=== PATIENT | female | born 1995 | race Two or more races ===

== ENCOUNTER 2016-11-09 09:44 | Emergency (ER) | payer OTHER ==
[2016-11-09 09:58] VITALS: BMI 26.5
--- NOTE | 2016-11-09 09:58 | PDOC ---
Attending Attestation - Resident Resident Name: Coni Saldaña - ED Attending Attestation I have performed the following: I have examined & evaluated the patient, The case was reviewed & discussed with the resident, I agree w/resident's findings & plan, Exceptions are as noted - HPI HPI: 11/09/16 10:28 Toe Numbness Hx of Cerebral Aneurysm x2, one clipped, one not. - Physicial Exam PE: 11/09/16 10:29 VSS NAD - Medical Decision Making 11/09/16 10:[address] Stover's assessment and plan
[2016-11-09] MEDS ORDERED: SODIUM CHLORIDE 1,000 ML IV STA (10:27)
--- NOTE | 2016-11-09 10:39 | PDOC ---
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 Pt was sitting and noticed when she got up that her Left foot 1st toe was numb, no pain or tingling. She thought the numbness would go away, however she presents to the ER today with persistent numbness. The numbness is constant , but has not spread. Pt denies any activity out of the ordinary lately. Pt does report wearing her friend's shoes yesterday, sneakers that fit comfortably. Pt reports having more stress lately related to school, grandmother passed recently, and mother's wedding recently. Pt denies headache , seizure, LOC, fever/chills, chest pain, SOB. 11/09/16 10:38 Severity: mild Associated Symptoms: denies: chest pain, diaphoresis, fever/chills, headaches, seizure, syncope Aspirin Received prior to arrival: Yes: no aspirin today Past History - Past Medical History Allergies/Adverse Reactions: Allergies Allergy/AdvReac Type Severity Reaction Status Date / Time No Known Allergies Allergy Verified 11/09/16 09:53 Home Medications: Ambulatory Orders Cephalexin [Keflex] 500 mg PO BID #14 capsule 11/09/16 CVA: (2 cerebral aneurysms) Seizures: No - Surgical History Neurologic Surgery: Yes (Left internal carotid artery terminus aneurysm coiled at [facility] 1 yr ago) - Family Disease History Family Disease History: Other: Brother (epilepsy) - Immunization History Immunization Up to Date: Yes - Psycho/Social/Smoking Cessation Hx Anxiety: No Suicidal Ideation: No Smoking History: Never smoked Have you smoked in the past 12 months: No Information on smoking cessation initiated: No Hx Alcohol Use: No Drug/Substance Use Hx: No Substance Use Type: None Review of Systems - Review of Systems Able to Perform ROS?: Yes Is the patient limited Kinyarwanda proficient: No Constitutional: No: Chills, Diaphoresis, Fever HEENTM: No: Recent change in vision, Ear Pain, Nose Pain, Throat Pain Respiratory: No: Shortness of Breath, Stridor, Wheezing, Hemoptysis Cardiac (ROS): No: Chest Pain, Irregular Heart Rate, Palpitations, Syncope ABD/GI: No: Constipated, Diarrhea, Nausea, Rectal Bleeding, Vomiting, Abdominal cramping : No: Dysuria, Hematuria Musculoskeletal: No: Joint Pain, Muscle Pain Integumentary: No: Bruising, Rash Neurological: Yes: Numbness (Left foot 1st toe). No: Headache, Seizure, Tingling, Unsteady Gait, Dizziness Hematologic/Lymphatic: No: Easy Bruising, Bleeding Diathesis *Physical Exam - Vital Signs Last Vital Signs Temp Pulse Resp BP Pulse Ox 98.4 F 65 18 137/59 98 11/09/16 09:51 11/09/16 09:51 11/09/16 09:51 11/09/16 09:51 11/09/16 09:51 - Physical Exam General Appearance: Yes: Nourished, Appropriately Dressed. No: Apparent Distress HEENT: positive: EOMI, WILLIE, Normal Voice, Other (moist mucous membranes). negative: Pale Conjunctivae, Scleral Icterus (R), Scleral Icterus (L) Neck: positive: Trachea midline, Supple Respiratory/Chest: positive: Lungs Clear, Normal Breath Sounds. negative: Respiratory Distress, Accessory Muscle Use, Rhonchi, Stridor, Wheezing Cardiovascular: positive: Regular Rhythm, Regular Rate, S1, S2. negative: Edema , JVD, Murmur Vascular Pulses: Dorsalis-Pedis (R): 3+, Doralis-Pedis (L): 3+ Gastrointestinal/Abdominal: negative: Tender, Distended, Guarding, Rebound Musculoskeletal: positive: Normal Inspection Extremity: positive: Normal Range of Motion. negative: Pedal Edema, Calf Tenderness Integumentary: positive: Dry, Warm Neurologic: positive: Fully Oriented, Alert, Normal Mood/Affect, Numbness ( numbness to Left foot 1st toe. 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 Call placed to Neurologist (Dr. Adams at [facility]). Office faxed over most recent imaging report (cerebral angiogram from 02/2016) revealing Left internal carotid artery terminus aneurysm still protected with coils and grossly unchanged Right M1 aneurysm measuring maximally 2mm. CBC with diff, CMP, U/A, urine (-), 1 L NS bolus 11/09/16 11:06 11/09/16 11:37 U/A reveals UTI -> 1g Rocephin IVPB Brain CTA ordered 11/09/16 14:28 Brain CTA (-). No evidence of acute intracranial hemorrhage. *DC/Admit/Observation/Transfer Diagnosis at time of Disposition: Numbness - Discharge Dispostion Disposition: HOME Admit: No - Prescriptions Prescriptions: Cephalexin [Keflex] 500 mg PO BID #14 capsule - Referrals Referrals: Sandy Bergeron MD [Primary Care Provider] - - Patient Instructions Printed Discharge Instructions: Urinary Tract Infection Additional Instructions: Brain CTA imaging revealed no acute hemorrhage, suggesting no ruptured aneurysm. Please follow-up with Primary Care Doctor. Urinary Tract Infection found on urinalysis. Please [facility] Keflex prescription sent to [facility], and take as instructed.
[2016-11-09 10:52] LABS: BASOPHIL 0.7 % (0-2.0); EOSINOPHIL 2.3 % (0-4.5); MCH 28.2 pg (25.7-33.7); MEAN CELL VOLUME 85.5 fl (80-96); MEAN PLT VOLUME 7.8 fl (7.5-11.1); NEUTROPHILS 57.6 % (42.8-82.8); PLATELET COUNT 346 K/MM3 (134-434); RDW 13.6 % (11.6-15.6); WHITE BLOOD COUNT 8.8 K/mm3 (4.0-10.0)
[2016-11-09 11:02] LABS: PH,URINE 6.5 (5.0-8.0); URINE APPEARANCE CLEAR; URINE BILIRUBIN NEGATIVE (NEGATIVE); URINE BLOOD TRACE-LYSE (NEGATIVE); URINE COLOR LT. YELLOW; URINE GLUCOSE (UA) NEGATIVE (NEGATIVE); URINE KETONE NEGATIVE (NEGATIVE); URINE LEUK ESTERASE 3+ (NEGATIVE); URINE NITRITE NEGATIVE (NEGATIVE); URINE PROTEIN NEGATIVE (NEGATIVE); URINE UROBILINOGEN 0.2 mg/dL (0.2-1.0)
[2016-11-09 11:06] LABS: URINE BACTERIA RARE /hpf (NONE SEEN); URINE MUCUS RARE; URINE RBC 2 /hpf (0-3); URINE WBC 28 /hpf (3-5)
[2016-11-09 11:17] LABS: ANION GAP 7 (8-16); CALCIUM 9.4 mg/dL (8.5-10.1); CO2 27 mmol/L (21-32); CREATININE 0.5 mg/dL (0.55-1.02); GLUCOSE,RANDOM 79 mg/dL (74-106); SGOT/AST 13 U/L (15-37); SGPT/ALT 20 U/L (12-78)
[2016-11-09 11:19] LABS: BILIRUBIN,TOTAL 0.3 mg/dL (0.2-1.0); TOT PROT 7.9 g/dl (6.4-8.2)
[2016-11-09 11:20] LABS: ALK PHOS 99 U/L (45-117)
[2016-11-09] MEDS ORDERED: cefTRIAXone 1 GM/50 ML BAG (PRE-DOCKED) IVPB ONE (11:31)
[2016-11-09] MEDS ORDERED: CEFTRIAXONE 50 ML ONE (11:46)
[2016-11-09 15:19] VITALS: BP 133/77; PULSE 79; TEMP 98
== END 2016-11-09 15:19 | disposition home or self-care (01) ==
LOC: JER 09:44
PROC: 3E0337Z Introduction of Electrolytic and Water Balance Substance into Peripheral Vein, Percutaneous Approach (ICD-10-PCS; principal; 2016-11-09)
PROC: 3E03329 Introduction of Other Anti-infective into Peripheral Vein, Percutaneous Approach (ICD-10-PCS; 2016-11-09)
DX: R20.0 Anesthesia of skin (principal); N39.0 Urinary tract infection, site not specified
CPT/HCPCS: 36415; 70496-TC; 80053; 81003; 81015; 84703; 85025; 96361; 96374; 99283-25

== ENCOUNTER 2020-06-16 18:27 | Emergency (ER) | payer OTHER ==
[2020-06-16 18:54] VITALS: BP 121/76; PULSE 69; TEMP 98.2; BMI 36.0
[2020-06-16] MEDS ORDERED: ACETAMINOPHEN 500 MG TABLET (FP) PO ONE (21:12)
[2020-06-16] MEDS ORDERED: ACETAMINOPHEN 325 MG TABLET (FP) ONE (21:23)
[2020-06-16] MEDS ORDERED: METOCLOPRAMIDE HCL INJECTION 10 MG/2 ML VIAL IVPUSH ONE (22:52)
[2020-06-16] MEDS ORDERED: METOCLOPRAMIDE HCL INJECTION 10 MG/2 ML VIAL ONE (23:10)
[2020-06-16] MEDS ORDERED: ACETAMINOPHEN INJECTION 100 ML IVPB ONE (23:10)
== END 2020-06-17 00:24 | disposition home or self-care (01) ==
LOC: JER 18:27
PROC: 3E033GC Introduction of Other Therapeutic Substance into Peripheral Vein, Percutaneous Approach (ICD-10-PCS; principal; 2020-06-16)
DX: R51.9 Headache, unspecified (principal)
CPT/HCPCS: 36415; 70470-TC; 84703; 99285-25; Q9967

== ENCOUNTER 2020-08-15 08:50 | Emergency (ER) | payer OTHER ==
[2020-08-15 09:00] VITALS: BP 103/58; PULSE 69; TEMP 98.2; BMI 38.0
[2020-08-15] MEDS ORDERED: KETOROLAC TROMETHAMINE 30 MG/1 ML VIAL IM ONE (09:21)
[2020-08-15] MEDS ORDERED: KETOROLAC TROMETHAMINE 30 MG/1 ML VIAL ONE (09:22)
[2020-08-15 09:52] LABS: EPI CELLS 6 /uL (0-25.1); HYALINE CASTS 0 /uL (0-3.1); URINE APPEARANCE CLEAR; URINE BACTERIA 197 /uL (0-1359); URINE BILIRUBIN NEGATIVE (NEGATIVE); URINE COLOR YELLOW; URINE GLUCOSE (UA) NEGATIVE (NEGATIVE); URINE KETONE NEGATIVE (NEGATIVE); URINE LEUK ESTERASE NEGATIVE (NEGATIVE); URINE NITRITE NEGATIVE (NEGATIVE); URINE PROTEIN NEGATIVE (NEGATIVE); URINE RBC 558 /uL (0-23.9); URINE UROBILINOGEN 0.2 mg/dL (0.2-1.0); URINE WBC 7 /uL (0-25.8)
[2020-08-15 09:53] LABS: HCG,QUALITATIVE URINE Negative
== END 2020-08-15 10:11 | disposition home or self-care (01) ==
LOC: JERFT 08:50
PROC: 3E0233Z Introduction of Anti-inflammatory into Muscle, Percutaneous Approach (ICD-10-PCS; principal; 2020-08-15)
DX: S39.012A Strain of muscle, fascia and tendon of lower back, initial encounter (principal); M54.5 Low back pain
CPT/HCPCS: 36415; 81003; 84703; 87086; 87491; 87591; 99284-25

== ENCOUNTER 2023-03-11 12:39 | Emergency (ER) | payer OTHER ==
[2023-03-11 12:52] VITALS: BP 136/72; PULSE 96; RESP 19; TEMP 99.7; BMI 42.0
[2023-03-11] MEDS ORDERED: ACETAMINOPHEN 500 MG TABLET (FP) PO ONE (13:56)
== END 2023-03-11 15:49 | disposition home or self-care (01) ==
LOC: JERFT 12:39
DX: R05.9 Cough, unspecified (principal); R09.89 Other specified symptoms and signs involving the circulatory and respiratory systems; J02.9 Acute pharyngitis, unspecified; J10.1 Influenza due to other identified influenza virus with other respiratory manifestations; Z20.822 Contact with and (suspected) exposure to COVID-19
CPT/HCPCS: 0241U-QW; 71046-TC-FY; 99284-25